=== PATIENT | male | born 1965 | race Caucasian/White ===

== ENCOUNTER 2016-07-06 11:05 | Emergency (ER) | payer OTHER ==
[2016-07-06 12:45] VITALS: BP 111/79
--- NOTE | 2016-07-06 13:18 | RAD ---
INDICATION: Traumatic fracture right wrist COMPARISON: None TECHNIQUE: AP, lateral, and oblique views were obtained. FINDINGS: There is a comminuted, displaced intra-articular fracture ulnar aspect of the distal radius. There is 2 mm of depression of the dominant fragment. There are no other fractures. The carpals articulate normally. There is soft tissue swelling. IMPRESSION: INTRA-ARTICULAR FRACTURE OF THE DISTAL RADIUS DESCRIBED.
[2016-07-06] MEDS ORDERED: HYDROcodone/ACETAMIN 5-325 MG* 1 TAB PO ONE ×2 (14:03→14:42)
--- NOTE | 2016-07-06 14:45 | UC ---
Hand/Wrist HPI - HPI Summary HPI Summary: TRIP AND FALL 1030 AT WORK FELL FORWARD ONTO RIGHT HAND, WRIST BENT BACKWARDS. PAIN AND DEFORMITY TO RIGHT WRIST. - History Of Current Complaint Chief Complaint: UCUpperExtremity Stated Complaint: RIGHT WRIST INJURY Time Seen by Provider: 07/06/16 12:47 Hx Obtained From: Patient, Family/Welder/Fitter Onset/Duration: Sudden Onset, Lasting Hours, Still Present Severity Initially: Moderate Severity Currently: Moderate Character Of Pain: Dull, Aching Aggravating Factor(s): Movement, Lifting, Flexion, Extension Alleviating: Nothing Associated Signs And Symptoms: Positive: Swelling. Negative: Weakness, Numbness /Tingling Related History: Dominant Hand Right - Allergies/Home Medications Allergies/Adverse Reactions: Allergies Allergy/AdvReac Type Severity Reaction Status Date / Time No Known Allergies Allergy Verified 03/04/15 17:38 PMH/Surg Hx/FS Hx/Imm Hx Previously Healthy: Yes - Surgical History Surgical History: Yes Surgery Procedure, Year, and Place: basal cell. melanoma - Family History Known Family History: Negative: Other - JOINT [place]XITY - Social History Occupation: Employed Full-time Lives: With Family Alcohol Use: Rare Substance Use Type: None Smoking Status (MU): Heavy Every Day Tobacco Smoker Type: Cigarettes Amount Used/How Often: 1 ppd Length of Time of Smoking/Using Tobacco: age 17 yo Household Exposure Type: Cigarettes Cessation Counseling: Patient Advised to Stop - Immunization History Most Recent Influenza Vaccination: no Review of Systems Constitutional: Negative Skin: Negative Eyes: Negative ENT: Negative Respiratory: Negative Cardiovascular: Negative Gastrointestinal: Negative Genitourinary: Negative Motor: Negative Neurovascular: Negative Musculoskeletal: Arthralgia - RIGHT WRIST, Edema - RIGHT WRIST, Myalgia Neurological: Negative Psychological: Negative All Other Systems Reviewed And Are Negative: Yes Physical Exam Triage Information Reviewed: Yes Appearance: Well-Appearing, No Pain Distress, Well-Nourished Vital Signs: Initial Vital Signs Temp 98.3 F 07/06/16 12:42 Pulse 63 07/06/16 12:42 Resp 18 07/06/16 12:42 BP 111/79 07/06/16 12:42 Pulse Ox 97 07/06/16 12:42 Vital Signs Reviewed: Yes Eye Exam: Normal ENT Exam: Normal ENT: Positive: Normal ENT inspection, Hearing grossly normal, Pharynx normal, TMs normal Dental Exam: Normal Neck exam: Normal Neck: Positive: Supple, Nontender Respiratory Exam: Normal Respiratory: Positive: Chest non-tender, Lungs clear, Normal breath sounds, No respiratory distress, No accessory muscle use Cardiovascular Exam: Normal Cardiovascular: Positive: RRR, No Murmur, Pulses Normal Abdominal Exam: Normal Musculoskeletal: Positive: Strength Limited @ - RIGHT WRIST, ROM Limited @ - RIGHT WRIST, Edema @ - RIGHT WRIST Neurological Exam: Normal Neurological: Positive: Alert, Muscle Tone Normal Psychological Exam: Normal Psychological: Positive: Normal Response To Family Skin Exam: Normal Diagnostics - Laboratory Diagnostic Studies Completed/Ordered: RIGHT WRIST: CLOSED INTERARTICULAR FRACTURE OF RIGHT DISTAL RADIUS Hand/Wrist Course/Dx - Differential Dx/Diagnosis Differential Diagnosis/HQI/PQRI: Sprain, Strain Provider Diagnoses: CLOSED INTERARTICULAR FRACTURE OF RIGHT DISTAL RADIUS Discharge - Discharge Plan Condition: Stable Disposition: HOME Prescriptions: HYDROcodone/ACETAMIN 5-325 MG* [Ward 5-325 TAB*] 1 tab PO Q6H PRN #20 tab MDD four tabs PRN Reason: Pain Patient Education Materials: Wrist Fracture in Adults (ED) Referrals: Ld Castro MD [Primary Care Provider] - Massimo Bradley MD [Medical Doctor] -
== END 2016-07-06 15:10 | disposition home or self-care (01) ==
LOC: UCEAST 11:05
DX: S52.571A Other intraarticular fracture of lower end of right radius, initial encounter for closed fracture (principal); W01.0XXA Fall on same level from slipping, tripping and stumbling without subsequent striking against object, initial encounter; Y92.9 Unspecified place or not applicable; Y99.0 Civilian activity done for income or pay; F17.210 Nicotine dependence, cigarettes, uncomplicated
CPT/HCPCS: 99213; G0463